=== PATIENT | female | born 2000 | race Caucasian/White ===

== ENCOUNTER 2024-04-03 02:31 | Inpatient (IN) | payer OTHER ==
[~2024-04-03] VITALS: Ht 162.6 cm; Wt 61.6 kg
[2024-04-03] VITALS (140 sets, daily range): BP systolic 94–120; BP diastolic 54–81; PULSE 54–67; TEMP 97–98.7; O2SAT 93–100
[~2024-04-03 02:31] MED LIST: FLEXERIL 1010 MG/TAB PO
[2024-04-03] MEDS ORDERED: Phenylephrine 500 MCG/5 ML VIAL IV ONE (02:40)
[2024-04-03] MEDS ORDERED: fentaNYL 100 ML IV ONE (03:00)
[2024-04-03] MEDS ORDERED: Ondansetron 4 MG/2 ML VIAL IV ONE (03:10)
[2024-04-03 03:12] LABS: ALBUMIN 3.6 g/dL (3.5-5.0); BILIRUBIN,TOTAL 0.9 mg/dL (0.2-1.2); CALCIUM 8.4 mg/dL (8.4-10.2); CREATININE, serum 0.83 mg/dL (0.57-1.11); POTASSIUM 3.2 mEq/L (3.5-4.5); TOTAL PROTEIN 6.3 g/dl (6.2-8.1)
[2024-04-03] MEDS ORDERED: Ketamine 50 MG/5 ML SYRINGE IV ONE (03:12)
[2024-04-03 03:15] LABS: BASO % 0.7 % (0.0-2.0); EOS # 0.2 K/mm3 (0.0-0.7); EOS % 3.2 % (0.0-4.0); GRAN # 3.7 K/mm3 (1.4-6.5); GRAN % 66.2 % (42.2-75.2); LYMPH # 1.3 K/mm3 (1.2-3.4); MEAN CELL VOLUME 86 fl (80.0-100.0); MEAN CORPUSCULAR HEMOGLOBIN 31 pg (27-31); MEAN CORPUSCULAR HGB CONC 36 g/dl (33.0-37.0); MEAN PLATELET VOLUME 9.4 fl (7.4-10.4); MONO # 0.4 K/mm3 (0.1-0.6); MONO % 6.7 % (1.7-9.3); PLATELET COUNT 253 K/mm3 (130-400); REDCELL DISTRIBUTION WIDTH-CV 12.1 % (11.5-14.5)
[2024-04-03] MEDS ORDERED: LR 1,000 ML IV ONE ×2 (03:15)
--- NOTE | 2024-04-03 03:16 | NUR ---
PT ARRIVED VIA EMS. PT INTUBATED BY . RT AT HEAD OF BED W INTUBATION ASSIST. PT INTUBATED WITH MAC 3 AND 7.5 ETT/ 22 @ TEETH. PT PLACED ON VENT ON DOCUMENTED VENT SETTINGS. PT TOLERATING VENT WELL.
[2024-04-03 03:19] LABS: COLLECTION METHOD CATHETER
[2024-04-03 03:22] LABS: URINE APPEARANCE CLEAR (CLEAR/HAZY); URINE BLOOD NEGATIVE (NEGATIVE); URINE COLOR YELLOW (YELLOW); URINE GLUCOSE NEGATIVE (NEGATIVE); URINE KETONE NEGATIVE (NEGATIVE); URINE NITRATE NEGATIVE (NEGATIVE); URINE PROTEIN(semi-quant) NEGATIVE (NEGATIVE); URINE UROBILINOGEN 0.2 E.U/dL (0.2-1.0)
[2024-04-03 03:39] LABS: TRICYCLIC ANTIDEPRESS URINE NEGATIVE (NEGATIVE)
[2024-04-03 03:40] LABS: INR 1.3 (0.8-3.0); PROTHROMBIN TIME 14.5 SECONDS (9.7-12.8)
[2024-04-03 04:00] LABS: SALICYLATE < 5.0 mg/dL (15.0-30.0)
[2024-04-03] MEDS ORDERED: 1: LR 1,000 ML 2: NS 1,000 ML IV SCH (04:45)
--- NOTE | 2024-04-03 05:42 | NUR ---
0445-PT TRANSPORTED TO CT ON VENT. PT VITALS ARE STABLE.
[2024-04-03] MEDS ORDERED: Potassium Chloride 100 ML IV SCH (05:45)
--- NOTE | 2024-04-03 06:34 | NUR ---
Received report from ANTONIO Vogel from ED at 0429. Pt arrived on the unit at 0449. Pt only on fentanyl at the time. Muse and OG in place. Wrist restraints are in place. Pt was slightly responding when we were talking about her height and was able to answer yes and no questions. Then propofol was added. UNABLE TO DO MED. REC., ALLERGIES, AND PHARMACY DUE TO PT BEING INTUBATED AND NO FAMILY AT BED SIDE AT THIS TIME. UNABLE TO ANSWER MOST OF THE INTAKE WELL. 0533 Hospitalist was notified about poison control calling and wanting a creatine kinase, CMP for later, and to replace K+. Replace K+ and start with 40 mEq and go from there. Goal is to keep K+ greater than 4 and magnesium greater then 2. Can keep propofol going just put the rate at 10 mcg/kg/min and fentanyl at 50 mcg/hr and go from there to help not prolong the QT interval and not cause hypotension and further the bradycardia. Pt woke up a around 0630 when spoke to and pt was startled. Pt was able to follow commands and this nurse talked to pt about where she is at and that the ET tube is in place to help her breath and she has restraints in place because when you wake up the first thing you want to do is to pull the ET tube out. Hospitalist was notified about pt waking up and was told to increase propofol and fentanyl. Will give report to day shift nurse.
--- NOTE | 2024-04-03 08:00 | NUR ---
Patient is alert and oriented despite light sedation and ETT. She is able to answer/respond to questions appropriately. Extubation is planned this morning after Dr. Garvin spoke with poison control about half life of medications, recommendations on what to observe for and action plan for decline if it were to occur.
--- NOTE | 2024-04-03 08:15 | NUR ---
BREATHING TRIAL INITIATED AND PERFORMED BY THANH BAILON MD. THIS INDUSTRIAL SAFETY ENGINEER MADE AWARE WHEN ORDERED TO EXTUBATE WHEN NURSING STAFF IS AVAILABLE AND READY. 09 EXTUBATION PERFORMED WITHOUT COMPLICATION WITH CHRISTOPHER ALFRED RN AT BEDSIDE WHO PERFORMS ORAL SUCTION. PT FOLLOWS INSTRUCTION AND TOLERATES EXTUBATION WELL. PT WAS BRIEFLY PLACED ON 2LPM NC WHICH WAS PLACED AND REMOVED BY NURSING STAFF.
[2024-04-03] MEDS ORDERED: Pantoprazole 40 MG in NS 10 ML IV SCH (09:00)
--- NOTE | 2024-04-03 09:25 | NUR ---
Patient extubated to room air. Patient slightly drowsy but alert and oriented X 4. Cooperative with staff. Patient's 02 slowly decreased to the low 90's and 02 at 2l was placed and o2 incresed to 100%. Will attmpt to wean back off o2 if possible. 1:1 sitter present in room with patient.
[2024-04-03] MEDS ORDERED: Ondansetron 4 MG/2 ML VIAL IV PRN (12:30)
[2024-04-03 14:53] LABS: ALANINE AMINOTRANSFERASE 17 U/L (0-55); ALBUMIN 3.5 g/dL (3.5-5.0); ALKALINE PHOSPHATASE 45 U/L (40-150); ANION GAP 9 mmol/L (7-16); AST,SGOT 21 U/L (5-34); BILIRUBIN,TOTAL 1.6 mg/dL (0.2-1.2); BLOOD UREA NITROGEN 7 mg/dL (7-19); CHLORIDE 107 mEq/L (98-107); CREATINE KINASE 90 U/L (29-168); CREATININE, serum 0.76 mg/dL (0.57-1.11); GLUCOSE 92 mg/dL (70-99); POTASSIUM 4.5 mEq/L (3.5-4.5); SODIUM 138 mEq/L (136-145); TOTAL PROTEIN 6.4 g/dl (6.2-8.1)
[2024-04-03 15:05] LABS: ALCOHOL(ethanol),MEDICAL < 10 mg/dL (0-10)
--- NOTE | 2024-04-03 15:48 | NUR ---
Poison control updated on Ms. Wilson's progress. VSS, extubated, ambulating, appropriate, HR stable, lactic acid 1.9. No prolonged QTc at this time. Will continue to monitor and update PC as needed.
[2024-04-03] MEDS ORDERED: Acetaminophen 500 MG TAB PO PRN (16:30)
--- NOTE | 2024-04-03 19:38 | NUR ---
Spoke with patient and . We talked about moments that are difficult for her, helped her identify triggers, her isolation, her needs, and what changes can take place that may influence a healthy relationship with her , but also herself. Expressed anxiety when leaves, and feels isolated from family, but feels the need for family support. Family support is dysfunctional and can lead to further anxiety. She works a remote job, has animals at the house for company, and also has identified current social support/groups. She states she enjoys her time here in [place], however feels intense lonliness. Her and her have been for 14 months, and they just went through their first deployment as a couple away from home.
--- NOTE | 2024-04-03 20:00 | NUR ---
Pt resting in bed, not complaining of pain or discomfort at this time. VSS. IV not infusing with medications at this time, flushed to confirm patency. Assessment performed without difficulty. Evening medications administered without difficulty. Suicide assessment completed, pt currently scoring high risk. Pt does not have any questions or concerns at this time.
[2024-04-03] MEDS ORDERED: ZANAFLEX2 MG PO (20:30)
[2024-04-03] MEDS ORDERED: ALDACTONE 100M100 MG PO (20:31)
[2024-04-03] MEDS ORDERED: ZOLOFT 100MG100 MG PO (20:32)
[2024-04-03] MEDS ORDERED: NURTEC ODT75 MG PO (20:33)
[2024-04-03] MEDS ORDERED: EMGALITY120 MG/1 M SQ (20:35)
[2024-04-03] MEDS ORDERED: Famotidine 20 MG TAB PO SCH (21:00)
[2024-04-04] VITALS (203 sets, daily range): BP systolic 90–118; BP diastolic 47–73; PULSE 75–83; TEMP 98.1–98.6; O2SAT 95–100
[2024-04-04 04:19] LABS: BASO % 0.3 % (0.0-2.0); EOS # 0.5 K/mm3 (0.0-0.7); EOS % 7.4 % (0.0-4.0); GRAN # 4.2 K/mm3 (1.4-6.5); GRAN % 62.2 % (42.2-75.2); LYMPH # 1.4 K/mm3 (1.2-3.4); LYMPH % 20.3 % (20.0-51.0); MEAN CELL VOLUME 89 fl (80.0-100.0); MEAN CORPUSCULAR HEMOGLOBIN 31 pg (27-31); MEAN CORPUSCULAR HGB CONC 35 g/dl (33.0-37.0); MEAN PLATELET VOLUME 9.1 fl (7.4-10.4); MONO # 0.6 K/mm3 (0.1-0.6); MONO % 9.5 % (1.7-9.3); PLATELET COUNT 231 K/mm3 (130-400); RED BLOOD COUNT 4.29 M/mm3 (4.10-5.30); REDCELL DISTRIBUTION WIDTH-CV 12.7 % (11.5-14.5)
[2024-04-04 04:23] LABS: HEMOGLOBIN 13.1 g/dl (12.5-16.0)
[2024-04-04 04:35] LABS: CALCIUM 8.9 mg/dL (8.4-10.2); CREATININE, serum 0.78 mg/dL (0.57-1.11)
--- NOTE | 2024-04-04 07:00 | NUR ---
REPORT RECEIVED FROM ANTONIO PLATA. PT RESTING IN BED, VSS. PT ALERT AND ORIENTED, DENIES NEEDS, CALL LIGHT IN REACH.
[2024-04-04 08:55] LABS: BILIRUBIN,TOTAL 1.4 mg/dL (0.2-1.2)
[2024-04-04 09:04] LABS: INR 1.3 (0.8-3.0); PROTHROMBIN TIME 14.1 SECONDS (9.7-12.8)
--- NOTE | 2024-04-04 10:36 | NUR ---
patient 24 hour o2 checks are completed.
--- NOTE | 2024-04-04 10:46 | NUR ---
[employer] maintenance worker attended interdisciplinary clincial rounding with Dr. Jarquin. Patient needs a couple follow up labs but may be able to discharge today. FARTUN met with patient and her , Gerardo, P# [phone], to discuss discharge planning. Patient lives in [place] with her . PCP is Brittany Joyner, Pharmacy is [facility] on [address] or she has her medications mailed to her through [facility]. No issues affording medications. Insurance is [employer]. No DPOA-HC and is not interested in completing one at this time and is okay with her being her decision maker if something were to happen to her. No DME. Patient reports to be independent with [facility]LS. Patient has a vehicle for transportation to and from appointments. Patient would like to return home at time of discharge. FRATUN explained [facility] will screen her once medically ready for discharge and determine if she would need inpatient services or return home with safety plan. FARTUN provded the mental health resources and suicide prevention hotline information. Patient and understands. FARTUN was notified patient is medically cleared for discharge. FARTUN faxed information to [facility] for screening. FARTUN contacted [facility] and notified them of discharge and need for screen. FARTUN provided patient's nurse, Keysha, contact information to [facility] to follow up with. FARTUN notified patient's nurse that [facility] will be contacting her regarding completing the screen.
--- NOTE | 2024-04-04 12:02 | NUR ---
spool worker was notified [facility] has not received the fax. FARTUN refaxed the requested info to [facility]. FARTUN contacted [facility] whom reports they have not received it yet. FARTUN refaxed the information to [facility] for a third time. [facility] stated they would call in 30 minutes if they have not received it.
--- NOTE | 2024-04-04 16:11 | NUR ---
Screening done w/ [facility] staff at 1400. Safety plan put into place w/ pt and her and pt scheduled for f/u at [facility] on . Pt and her both signed safety plan agreement, copy placed on [employer], given to pt, and faxed to [facility]. Pt also instructed to schedule f/u with PCP within a week. Pt given d/c education packet including print outs w/ resources and info sent by [facility]. Pt d/c ambulatory to home at 1505.
== END 2024-04-04 15:05 | disposition home or self-care (01) | DRG 918 ==
LOC: COL.ER 02:31 → ICU 04:13
PROVIDERS: Emergency Medicine; Internal Medicine Pulmonary Disease; Physician Assistant; ADMIT Internal Medicine
PROC: 5A1935Z Respiratory Ventilation, Less than 24 Consecutive Hours (ICD-10-PCS; principal; 2024-04-03)
PROC: 0BH17EZ Insertion of Endotracheal Airway into Trachea, Via Natural or Artificial Opening (ICD-10-PCS; 2024-04-03)
DX: T48.1X4A Poisoning by skeletal muscle relaxants [neuromuscular blocking agents], undetermined, initial encounter (principal)
CPT/HCPCS: J1650; J2310; J2405; J2470; J2704; J3010; J3480; J7120